=== PATIENT | male | born 1960 | race African-American/Black ===

== ENCOUNTER 2020-10-10 15:20 | Emergency (ER) | payer MEDICAID, OTHER ==
[~2020-10-10] VITALS: Ht 185.4 cm; Wt 122.5 kg
[2020-10-10 15:20] VITALS: BP 152/76
[~2020-10-10 15:20] MED LIST: ASPI-1169 PO; ATOR80TA PO; FLUO20TA28 PO; GABA-534 PO; LISI-607 PO; METO-358 PO; PANT40TA2 PO
[2020-10-10] MEDS ORDERED: KETOROLAC TROMETHAMINE INJ 30 MG/ML VIAL IV ONE (17:30)
[2020-10-10] MEDS ORDERED: IV NS 0.9% 500 ML BAG IV ONE (17:30)
[2020-10-10] MEDS ORDERED: LIDOCAINE 1% INJ 50 ML MDV IJ ONE (17:42)
[2020-10-10 17:50] LABS: BASOPHILS % (AUTO) 0.8 % (0.0-2.0); EOSINOPHILS % (AUTO) 7.2 % (0.0-6.0); HEMATOCRIT 44 % (39-51); HEMOGLOBIN 14.7 g/dL (13.5-17.5); LYMPHOCYTES # (AUTO) 1.5 /CMM (0.8-4.8); MEAN CORPUSCULAR HGB CONC 33 g/dl (31.0-36.0); MEAN CORPUSCULAR VOLUME 98 fL (80-96); MONOCYTES # (AUTO) 0.5 /CMM (0.1-1.30); MONOCYTES % (AUTO) 10.7 % (2.0-12.0); NEUTROPHILS # (AUTO) 2.5 /CMM (1.8-8.9); NEUTROPHILS % (AUTO) 51.3 % (43.0-81.0); PLATELET COUNT (AUTO) 199 /CMM (150-450); RED BLOOD CELL COUNT(AUTO) 4.54 MIL/uL (4.5-6.0); WHITE BLOOD COUNT (AUTO) 4.9 K/uL (4.3-11.0)
[2020-10-10] MEDS ORDERED: LIDOCAINE 1%-EPI 1:100,000 20 ML VIAL ONE (17:59)
[2020-10-10] MEDS ORDERED: LIDOCAINE 1%-EPI 1:100,000 20 ML VIAL TP ONE (18:00)
[2020-10-10] MEDS ORDERED: KETOROLAC TROMETHAMINE 15 MG/ML VIAL ONE (18:06)
[2020-10-10 18:08] LABS: ALBUMIN 3.4 g/dL (3.4-5.0); BILIRUBIN,DIRECT 0.1 mg/dL (0.0-0.2); BILIRUBIN,TOTAL 0.5 mg/dL (0.2-1.0); CALCIUM, SERUM 9.5 mg/dL (8.5-10.1); CREATININE 0.9 mg/dL (0.6-1.3); POTASSIUM 3.7 mmol/L (3.5-5.1); TOTAL PROTEIN, SERUM 7.3 g/dL (6.4-8.2)
[2020-10-10] MEDS ORDERED: SULFAMETH/TRIMETH 800/160 MG 1 UDTAB TABLET PO ONE (18:30)
[2020-10-10] MEDS ORDERED: CEFTRIAXONE 1GM BAG (ER ONLY) 1 GM/50 ML PIGGYBACK IV ONE (18:30)
[2020-10-10] MEDS ORDERED: SULFAMETH/TRIMETH 800/160 MG 1 UDTAB TABLET ONE (18:43)
[2020-10-10] MEDS ORDERED: CEFTRIAXONE 1GM BAG (ER ONLY) 50 ML IV ONE (18:43)
--- NOTE | 2020-10-10 19:59 | NUR ---
Patient discharged to home in stable condition. Written and verbal after care instructions given. Patient verbalizes understanding of instruction.IV removed. Catheter intact and site benign. Pressure and 4x4 applied to site. No bleeding noted.
== END 2020-10-10 19:59 | disposition home or self-care (01) ==
LOC: ER 15:21
DX: K65.1 Peritoneal abscess (principal); L72.3 Sebaceous cyst; L08.9 Local infection of the skin and subcutaneous tissue, unspecified; R00.0 Tachycardia, unspecified; E66.9 Obesity, unspecified; J44.9 Chronic obstructive pulmonary disease, unspecified; E78.5 Hyperlipidemia, unspecified; I10 Essential (primary) hypertension; Z68.30 Body mass index [BMI] 30.0-30.9, adult; Z72.0 Tobacco use; Z95.5 Presence of coronary angioplasty implant and graft; Z88.0 Allergy status to penicillin; Z88.5 Allergy status to narcotic agent; Z60.2 Problems related to living alone; Z79.82 Long term (current) use of aspirin; Z79.899 Other long term (current) drug therapy
CPT/HCPCS: 10060; 36415; 71045; 80048; 80076; 85025; 96374; 96375; 99284; A6407; J0696; J1885; J3490; J7040

== ENCOUNTER 2020-10-15 03:32 | Emergency (ER) | payer MEDICAID ==
[~2020-10-15] VITALS: Ht 185.4 cm; Wt 122.5 kg
[2020-10-15 03:35] VITALS: BP 148/69
== END 2020-10-15 04:45 | disposition home or self-care (01) ==
LOC: ER 03:35
DX: Z48.01 Encounter for change or removal of surgical wound dressing (principal); I10 Essential (primary) hypertension; J44.9 Chronic obstructive pulmonary disease, unspecified; F17.200 Nicotine dependence, unspecified, uncomplicated; Z98.890 Other specified postprocedural states; Z88.0 Allergy status to penicillin; Z88.5 Allergy status to narcotic agent; Z60.2 Problems related to living alone; Z79.899 Other long term (current) drug therapy; Z79.82 Long term (current) use of aspirin

== ENCOUNTER 2020-11-15 03:02 | Emergency (ER) | payer MEDICAID ==
[~2020-11-15] VITALS: Ht 185.4 cm; Wt 122.5 kg
[2020-11-15] MEDS ORDERED: ASPIRIN 81 MG TAB.CHEW ONE (03:23)
[2020-11-15] MEDS ORDERED: NITROGLYCERIN 0.4 MG/TAB BOTTLE SL ONE (03:30)
[2020-11-15] MEDS ORDERED: ASPIRIN 81 MG TAB.CHEW PO ONE (03:30)
--- NOTE | 2020-11-15 03:33 | NUR ---
PT DENIES CP AT THIS TIME. WILL HOLD NITRO.
[2020-11-15 03:54] LABS: BASOPHILS # (AUTO) 0.1 /CMM (0.0-0.2); BASOPHILS % (AUTO) 1.2 % (0.0-2.0); EOSINOPHILS % (AUTO) 7.5 % (0.0-6.0); HEMATOCRIT 47 % (39-51); HEMOGLOBIN 15.7 g/dL (13.5-17.5); LYMPHOCYTES # (AUTO) 1.8 /CMM (0.8-4.8); LYMPHOCYTES % (AUTO) 36.3 % (20.0-44.0); MEAN CORPUSCULAR HGB CONC 33 g/dl (31.0-36.0); MEAN CORPUSCULAR VOLUME 99 fL (80-96); MONOCYTES # (AUTO) 0.5 /CMM (0.1-1.30); MONOCYTES % (AUTO) 10.7 % (2.0-12.0); NEUTROPHILS # (AUTO) 2.2 /CMM (1.8-8.9); NEUTROPHILS % (AUTO) 44.3 % (43.0-81.0); PLATELET COUNT (AUTO) 183 /CMM (150-450); RED BLOOD CELL COUNT(AUTO) 4.78 MIL/uL (4.5-6.0)
[2020-11-15 04:00] LABS: CALCIUM, SERUM 9.3 mg/dL (8.5-10.1); POTASSIUM 3.6 mmol/L (3.5-5.1)
--- NOTE | 2020-11-15 05:34 | NUR ---
SPOKE TO YAZMIN, PT'S FRIEND. [phone] CALL BEFORE DISCHARGE/ADMISSION
--- NOTE | 2020-11-15 07:00 | NUR ---
IV removed. Catheter intact and site benign. Pressure and 4x4 applied to site. No bleeding noted.
[2020-11-15 07:01] VITALS: BP 139/83
--- NOTE | 2020-11-15 07:01 | NUR ---
Patient discharged to home in stable condition. Written and verbal after care instructions given. Patient verbalizes understanding of instruction. Pt's friend Natalee picked up pt. Denies cp. vss.
== END 2020-11-15 07:12 | disposition home or self-care (01) ==
LOC: ER 03:03
DX: R07.2 Precordial pain (principal); I10 Essential (primary) hypertension; J44.9 Chronic obstructive pulmonary disease, unspecified; Z95.5 Presence of coronary angioplasty implant and graft; Z79.82 Long term (current) use of aspirin; Z79.899 Other long term (current) drug therapy; Z88.5 Allergy status to narcotic agent; Z88.0 Allergy status to penicillin; Z20.822 Contact with and (suspected) exposure to COVID-19
CPT/HCPCS: 36415; 71045; 80048; 84484 ×2; 85025; 87426; 93005; 99285; C9803

== ENCOUNTER 2021-06-22 19:07 | Inpatient (IN) | payer MEDICAID ==
[~2021-06-22] VITALS: Ht 185.4 cm; Wt 127.5 kg
[~2021-06-22 19:07] MED LIST changes: -LISI-607 PO; +LISI-768 PO
--- NOTE | 2021-06-22 19:15 | NUR ---
recieved report from KATHRINE flores
[2021-06-22] MEDS ORDERED: FLUORESCEIN SODIUM OPHTH 1 EA STRIP ONE (19:55)
[2021-06-22] MEDS ORDERED: ERYTHROMYCIN BASE OPHTH 3.5 GM TUBE OP ONE (20:00)
[2021-06-22] MEDS ORDERED: FLUORESCEIN SODIUM OPHTH 1 EA STRIP OP ONE (20:00)
--- NOTE | 2021-06-22 20:34 | NUR ---
EMT @ BEDSIDE DOING EKG.
--- NOTE | 2021-06-22 20:37 | NUR ---
URINE COLLECTED AND SENT TO LAB.
--- NOTE | 2021-06-22 20:40 | NUR ---
DIRECTOR COMMUNITY HEALTH NURSING AT BEDSIDE.
[2021-06-22 21:03] LABS: BILIRUBIN,URINE Negative (NEGATIVE); COLOR,URINE YELLOW (YELLOW); LEUKOCYTE ESTERASE ,URINE Negative (NEGATIVE); NITRITE, URINE Negative (NEGATIVE); PROTEIN,URINE Negative (NEGATIVE); UGLUCOSE Negative (NEGATIVE)
[2021-06-22 21:05] LABS: BACTERIA,URINE Rare /HPF (None Seen); RBC,URINE NONE SEEN /HPF (0-2); SQUAMOUS EPITHELIAL CELL,UR Few /HPF (None Seen); WBC,URINE NONE SEEN /HPF (0-3)
--- NOTE | 2021-06-22 21:17 | NUR ---
covid swab done and sent to lab.
[2021-06-22 21:26] LABS: BASOPHILS # (AUTO) 0.1 K/uL (0.0-0.2); EOSINOPHILS % (AUTO) 8.7 % (0.0-6.0); HEMATOCRIT 42 % (39-51); HEMOGLOBIN 13.9 g/dL (13.5-17.5); LYMPHOCYTES # (AUTO) 1.8 K/uL (0.8-4.8); LYMPHOCYTES % (AUTO) 31.3 % (20.0-44.0); MEAN CORPUSCULAR HGB CONC 33 g/dl (31.0-36.0); MEAN CORPUSCULAR VOLUME 99 fL (80-96); MONOCYTES # (AUTO) 0.7 K/uL (0.1-1.30); MONOCYTES % (AUTO) 12.4 % (2.0-12.0); NEUTROPHILS # (AUTO) 2.7 K/uL (1.8-8.9); NEUTROPHILS % (AUTO) 46.6 % (43.0-81.0); PLATELET COUNT (AUTO) 188 K/uL (150-450); RED BLOOD CELL COUNT(AUTO) 4.29 MIL/uL (4.5-6.0); WHITE BLOOD COUNT (AUTO) 5.8 K/uL (4.3-11.0)
[2021-06-22 21:51] LABS: CALCIUM, SERUM 9.1 mg/dL (8.5-10.1); CARBON DIOXIDE 30 mmol/L (21-32); CHLORIDE 104 mmol/L (98-107); CREATININE 1.1 mg/dL (0.6-1.3); GLUCOSE 111 mg/dL (74-106); POTASSIUM 4.1 mmol/L (3.5-5.1); SODIUM SERUM 141 mmol/L (136-145); UREA NITROGEN, BLOOD 12 mg/dL (7-18)
[2021-06-22] MEDS ORDERED: ALBUTEROL FS 2.5 MG/3 ML VIAL.NEB NEB ONE (22:00)
[2021-06-22] MEDS ORDERED: IPRATROPIUM NEB FS 0.5 MG/2.5 ML AMPUL.NEB NEB ONE (22:00)
[2021-06-22] MEDS ORDERED: FUROSEMIDE 40 MG/4 ML VIAL IV ONE (22:00)
[2021-06-22 22:04] LABS: ALANINE AMINOTRANSFERASE 28 U/L (12-78); ALBUMIN 3.4 g/dL (3.4-5.0); ALCOHOL, BLOOD < 3 mg/dL (0-0); ALKALINE PHOSPHATASE 106 U/L (46-116); ASPARTATE AMINOTRANSFERASE 22 U/L (15-37); BILIRUBIN,DIRECT 0.2 mg/dL (0.0-0.2); BILIRUBIN,TOTAL 0.6 mg/dL (0.2-1.0); TOTAL PROTEIN, SERUM 7.6 g/dL (6.4-8.2)
[2021-06-22] MEDS ORDERED: FUROSEMIDE 40 MG/4 ML VIAL ONE (22:25)
[2021-06-22] MEDS ORDERED: ALBUTEROL FS 2.5 MG/3 ML VIAL.NEB ONE (22:34)
[2021-06-22] MEDS ORDERED: IPRATROPIUM NEB FS 0.5 MG/2.5 ML AMPUL.NEB ONE (22:34)
--- NOTE | 2021-06-22 22:39 | NUR ---
RT AT BEDSIDE.
[2021-06-22] MEDS ORDERED: ONDANSETRON HCL/PF 4 MG/2 ML VIAL IVP PRN (23:00)
[2021-06-22] MEDS ORDERED: ACETAMINOPHEN 325 MG TABLET PO PRN (23:00)
[2021-06-22] MEDS ORDERED: ZOLPIDEM TARTRATE 5 MG TABLET PO PRN (23:00)
[2021-06-22] MEDS ORDERED: MAGNESIUM HYDROXIDE 30 ML UDC PO PRN (23:00)
[2021-06-22] MEDS ORDERED: MAG HYDROX/AL HYDROX/SIMETH 30 ML UDC PO PRN (23:00)
[2021-06-22] MEDS ORDERED: Z GUARD REMEDY 2 OZ OINT TP PRN (23:00)
[2021-06-22] MEDS ORDERED: IPRATROPIUM NEB FS 0.5 MG/2.5 ML AMPUL.NEB NEB PRN (23:30)
[2021-06-22] MEDS ORDERED: ALBUTEROL FS 2.5 MG/3 ML VIAL.NEB NEB PRN (23:30)
--- NOTE | 2021-06-23 00:15 | NUR ---
AIR EXPORT COORDINATORINSTRUMENT MAINTENANCE SUPERVISOR PATIENT CAME IN AT THIS TIME VIA [employer]. ALERT AND ORIENTED BUT GROGGY. WHEN INTERVIEWED PATIENT DENIED SMOKING AND ONLY DRINKS OCCASIONALLY. NO S/S OF APPARENT DISTRESS IN 2LPM OXYGEN VIA NC >94% O2 SATURATION. PATIENT NO C/O PAIN. V/S FOLLOWS: BP- 134/74, P- 80, RR- 20, T- 97.9, WT- 281.1 LBS. YARD COORDINATOR READING SR. NO FLUIDS RUNNING AT THIS TIME -- PATIENT NOTED TO HAVE R. FA #20g. ID BAND ON, WILL CONTINUE TO MONITOR.
--- NOTE | 2021-06-23 00:20 | NUR ---
PT TRANSFERED PER [facility]
[2021-06-23 02:23] VITALS: BP 143/74
--- NOTE | 2021-06-23 02:34 | NUR ---
ACCOUNTING MACHINE OPERATORTOY ASSEMBLER WOOD PATIENT CAME IN AT THIS TIME VIA [employer]. ALERT AND ORIENTED BUT GROGGY. PATIENT EYES NOTED TO BE IRRITATED AND PATIENT'S SQUINTING.-- REPORTED TO ME THAT IT HURTS WHEN HE OPENS IT. WHEN INTERVIEWED PATIENT DENIED SMOKING AND ONLY DRINKS OCCASIONALLY. NO S/S OF APPARENT DISTRESS IN 2LPM OXYGEN VIA NC >94% O2 SATURATION. PATIENT NO C/O PAIN. V/S FOLLOWS: BP- 134/74, P- 80, RR- 20, T- 97.9, WT- 281.1 LBS. LEAD PROJECT MANAGER READING SR. NO FLUIDS RUNNING AT THIS TIME -- PATIENT NOTED TO HAVE R. FA #20g. ID BAND ON, WILL CONTINUE TO MONITOR
[2021-06-23 03:57] LABS: BASOPHILS # (AUTO) 0.1 K/uL (0.0-0.2); BASOPHILS % (AUTO) 1.2 % (0.0-2.0); EOSINOPHILS % (AUTO) 8.9 % (0.0-6.0); HEMATOCRIT 44 % (39-51); HEMOGLOBIN 14.5 g/dL (13.5-17.5); LYMPHOCYTES # (AUTO) 1.7 K/uL (0.8-4.8); LYMPHOCYTES % (AUTO) 29.7 % (20.0-44.0); MEAN CORPUSCULAR HGB CONC 33 g/dl (31.0-36.0); MEAN CORPUSCULAR VOLUME 98 fL (80-96); MONOCYTES # (AUTO) 0.7 K/uL (0.1-1.30); MONOCYTES % (AUTO) 13.2 % (2.0-12.0); NEUTROPHILS # (AUTO) 2.6 K/uL (1.8-8.9); PLATELET COUNT (AUTO) 196 K/uL (150-450); RED BLOOD CELL COUNT(AUTO) 4.45 MIL/uL (4.5-6.0); WHITE BLOOD COUNT (AUTO) 5.6 K/uL (4.3-11.0)
[2021-06-23 04:15] LABS: CALCIUM, SERUM 8.9 mg/dL (8.5-10.1); CREATININE 1.1 mg/dL (0.6-1.3); MAGNESIUM 2.1 mg/dL (1.8-2.4); PHOSPHORUS 4.7 mg/dL (2.5-4.9)
[2021-06-23 04:29] LABS: THYROID STIMULATING HORMONE 0.602 uIU/mL (0.358-3.74)
--- NOTE | 2021-06-23 06:50 | NUR ---
telephone lines repairer notes patient in bed with eyes closed, easy to arouse. a/ox4. no s/s of apparent distress tolerating 2lpm oxygen via nc. no c/o pain. patient ambulating with steady gait. no fluids running at this time. will endorse care morning shift rn.
[2021-06-23] MEDS ORDERED: BACL10TA PO (07:51)
[2021-06-23] MEDS ORDERED: OMEP20TA5 PO (07:51)
[2021-06-23] MEDS ORDERED: ISOS20TA8 PO (07:51)
[2021-06-23] MEDS ORDERED: GABA800T11 PO (07:51)
[2021-06-23] MEDS ORDERED: METO50TA16 PO (07:51)
[2021-06-23 08:00] VITALS: BP 123/79
[2021-06-23] MEDS ORDERED: TIOT4MIS2 INH (08:17)
[2021-06-23] MEDS ORDERED: FLUT100B3 INH (08:17)
[2021-06-23] MEDS ORDERED: ALBU6.7H9 INH (08:17)
[2021-06-23] MEDS ORDERED: ESCI20TA PO (08:17)
--- NOTE | 2021-06-23 08:20 | NUR ---
INSPECTOR SET UP AND LAY OUT OPENING NOTES RECEIVED PATIENT IN BED, ASLEEP. PATIENT ON ROOM AIR; BREATHING EVEN AND UNLABORED, NO SOB PRESENT. NO S/S OF PAIN SUCH FACIAL GRIMACING, MOANING OR GUARDING PRESENT. IV ACCESS ON RFA G #18 PRESENT AND INTACT. SAFETY PRECAUTIONS IN PLACE; BED IN LOW POSITION AND LOCKED, RAILS UP X2, CALL LIGHT WITHIN REACH. WILL CONTINUE TO MONITOR PATIENT.
[2021-06-23] MEDS: PANTOPRAZOLE 40 MG TABLET.DR PO SCH (09:17)
[2021-06-23] MEDS: FUROSEMIDE 40 MG/4 ML VIAL IV SCH (09:17)
[2021-06-23 12:08] LABS: ABG BASE EXCESS 4.9 mmol/L; ABG OXYGEN SATURATION 90.3 % (92.0-98.5); ABG PCO2 47.1 mmHg (35.0-45.0); ABG PH 7.426 (7.350-7.450); ABG PO2 56.8 mmHg (75.0-100.0); AaDO2 87.3 mmHg; COHb 1.6 % (0.5-1.5); MetHb 0.1 % (0.0-1.5); O2Hb 88.8 % (94.0-97.0); SITE, ABG Right Radial; VENT MODE, BG NASAL CANNULA
[2021-06-23] MEDS: methylPREDNISolone SOD SUCC 125 MG/2ML VIAL IV SCH ×2 (12:27→21:11)
--- NOTE | 2021-06-23 18:47 | NUR ---
DIRECTOR EQUIPMENT CLOSING NOTES PATIENT REMAINS IN BED, ASLEEP; AWAKE AT TIMES DURING THE DAY. PATIENT ON ROOM AIR; BREATHING EVEN AND UNLABORED, NO SOB PRESENT. TELE MONITOR WITH A CURRENT READING OF ST 115. NO COMPLAINS OF PAIN. IV ACCESS ON RFA G #18 PRESENT AND INTACT. ALL NEEDS ATTENDED DURING THE DAY. SAFETY PRECAUTIONS IN PLACE; BED IN LOW POSITION AND LOCKED, RAILS UP X2, CALL LIGHT WITHIN REACH. WILL ENDORSE TO FLIGHT ENGINEER HELICOPTER NURSE.
--- NOTE | 2021-06-23 19:38 | NUR ---
LEGAL MEDIATOR OPENING NOTES: RECEIVED PATIENT SLEEP IN BED COMFORTABLY, BED IN LOW POSITION, CALL LIGHTS WITHIN REACH, NO COMPLAIN OF PAINA ND DISCOMFORT AT THIS TIME, PATIENT IS A/O X4 AMBULATORY WITH SUPERVISION, ON TELE MONITORING WITH READING OF ST 109, ON NASAL CANNULA AT 3LPM NO SHORTNESS OF BREATH WAS OBSERVED, IV LINE AT RFA #18 SL, PATIENT KEPT CLEAN AND DRY, ALL NEEDS MET WILL CONTINUE TO MONITOR
[2021-06-23 20:00] VITALS: BP 135/85
[2021-06-23] MEDS: ALBUTEROL FS 2.5 MG/3 ML VIAL.NEB NEB SCH ×2 (20:17→23:48)
[2021-06-23] MEDS: IPRATROPIUM NEB FS 0.5 MG/2.5 ML AMPUL.NEB NEB SCH ×2 (20:18→23:48)
[2021-06-24] VITALS: BP 144/94
[2021-06-24] MEDS: IPRATROPIUM NEB FS 0.5 MG/2.5 ML AMPUL.NEB NEB SCH ×3 (03:50→11:30)
[2021-06-24] MEDS: ALBUTEROL FS 2.5 MG/3 ML VIAL.NEB NEB SCH ×3 (03:50→11:30)
[2021-06-24 04:00] VITALS: BP 132/91
[2021-06-24] MEDS: methylPREDNISolone SOD SUCC 125 MG/2ML VIAL IV SCH (05:30)
--- NOTE | 2021-06-24 06:46 | NUR ---
RN CLOSING NOTES: PATIENT SLEEP IN BED COMFORTABLY, AROUSABLE TO STIMULI, TANA IN LOW POSITION, CALL LIGHTS WITHIN REACH, NO COMPLAIN OF PAIN AND DISCOMFORT AT THIS TIME, ON O2 INHALATION AT 3LP, 02 SAT NO COMPLAIN OF PAIN, PT HAS CONSISTENTLY LOW BP DR MADE AWARE, NO CHANGES IN LOC AND SOB WAS OBSERVED, IV LINE AT RFA #18 INFUSING WELL, PATIENT KEPT CLEAN AND DRY, ALL NEEDS MET, ENDORSE TO INCOMING SHIFT. Addendum: 06/24/21 at 0733 by MAIRA MCCARTY RN CORRECTED CHARTING RN CLOSING NOTES: PATIENT SLEEP IN BED COMFORTABLY, AROUSABLE TO STIMULI, BED IN LOW POSITION, CALL LIGHTS WITHIN REACH, NO COMPLAIN OF PAIN AND DISCOMFORT AT THIS TIME, ON TELE MONITORING WITH READING OF ST, ASYMPTOMATIC ON O2 INHALATION AT 3LP, 02 SAT -, NO CHANGES IN LOC AND SOB OBSERVED, IV LINE AT RFA #18 INFUSING WELL, PATIENT KEPT CLEAN AND DRY, ALL NEEDS MET, ENDORSE TO INCOMING SHIFT
[2021-06-24 06:53] LABS: BASOPHILS % (AUTO) 0.1 % (0.0-2.0); HEMATOCRIT 47 % (39-51); HEMOGLOBIN 15.5 g/dL (13.5-17.5); LYMPHOCYTES # (AUTO) 0.8 K/uL (0.8-4.8); LYMPHOCYTES % (AUTO) 7.3 % (20.0-44.0); MEAN CORPUSCULAR HGB CONC 33 g/dl (31.0-36.0); MEAN CORPUSCULAR VOLUME 99 fL (80-96); MONOCYTES # (AUTO) 0.2 K/uL (0.1-1.30); MONOCYTES % (AUTO) 1.8 % (2.0-12.0); NEUTROPHILS % (AUTO) 90.8 % (43.0-81.0); PLATELET COUNT (AUTO) 214 K/uL (150-450); RED BLOOD CELL COUNT(AUTO) 4.76 MIL/uL (4.5-6.0)
[2021-06-24 07:05] LABS: CALCIUM, SERUM 9.1 mg/dL (8.5-10.1); POTASSIUM 4.3 mmol/L (3.5-5.1)
--- NOTE | 2021-06-24 07:27 | NUR ---
PAPER REEL OPERATOR OPENING NOTES RECEIVED PATIENT IN BED, ASLEEP. PATIENT ON ROOM AIR; BREATHING EVEN AND UNLABORED, NO SOB PRESENT. NO S/S OF PAIN SUCH FACIAL GRIMACING, MOANING OR GUARDING PRESENT. IV ACCESS ON RFA G #18 PRESENT AND INTACT. SAFETY PRECAUTIONS IN PLACE; BED IN LOW POSITION AND LOCKED, RAILS UP X2, CALL LIGHT WITHIN REACH. WILL CONTINUE TO MONITOR PATIENT.
[2021-06-24] MEDS: PANTOPRAZOLE 40 MG TABLET.DR PO SCH (07:39)
[2021-06-24 08:00] VITALS: BP 131/77
[2021-06-24] MEDS: FUROSEMIDE 40 MG/4 ML VIAL IV SCH (08:02)
--- NOTE | 2021-06-24 12:09 | NUR ---
REPAIR DEPARTMENT MANAGER NOTES PATIENT DECIDED TO GO AMA BECAUSE HE WANTS TO GO HOME AND HIS FAMILY WAS IN THE PARKING LOT WAITING FOR HIM. DISCUSSED WITH PATIENT AND THE FAMILY ALL POSSIBLE CONSEQUENCES OF LEAVING AMA BUT PATIENT SAID HE STILL WANTS TO GO. HE WAS SEEN BY PHYSICIAN TODAY BUT DID NOT SAY ANYTHING ABOUT WANTING TO GO. MD MADE AWARE ABOUT PATIENT SIGNING AMA.
== END 2021-06-24 11:50 | disposition left against medical advice (07) | DRG 140 ==
LOC: ER 19:24 → TELE 06-23 00:03
PROVIDERS: ADMIT Student in an Organized Health Care Education/Training Program; ATTEND Internal Medicine
DX: J44.1 Chronic obstructive pulmonary disease with (acute) exacerbation (principal); J96.21 Acute and chronic respiratory failure with hypoxia; E66.2 Morbid (severe) obesity with alveolar hypoventilation; I25.10 Atherosclerotic heart disease of native coronary artery without angina pectoris; E78.5 Hyperlipidemia, unspecified; H20.9 Unspecified iridocyclitis; Z79.82 Long term (current) use of aspirin; Z95.5 Presence of coronary angioplasty implant and graft; Z88.0 Allergy status to penicillin; F17.210 Nicotine dependence, cigarettes, uncomplicated; Z68.37 Body mass index [BMI] 37.0-37.9, adult; E11.9 Type 2 diabetes mellitus without complications; Z20.822 Contact with and (suspected) exposure to COVID-19; I10 Essential (primary) hypertension; J90 Pleural effusion, not elsewhere classified
CPT/HCPCS: 36415; 36600; 71045-TC; 80048-TC; 80061-TC; 80076-TC; 81001; 82803-TC; 83735-TC; 83880; 84100-TC; 84443-TC; 84484-TC; 85025-TC; 87081-TC; 93307-TC; 94799-TC; 97116-TC; 97530-TC; C9803; G0378; G0480; J1940; J2930

== ENCOUNTER 2022-02-18 07:57 | Emergency (ER) | payer MEDICAID ==
[~2022-02-18] VITALS: Ht 185.4 cm; Wt 125.2 kg
[~2022-02-18 07:57] MED LIST changes: +ALBU6.7H9 INH; +BACL10TA PO; +ESCI20TA PO; -FLUO20TA28 PO; +FLUT100B3 INH; -GABA-534 PO; +GABA800T11 PO; +ISOS20TA8 PO; -METO-358 PO; +METO50TA16 PO; +OMEP20TA5 PO; -PANT40TA2 PO; +TIOT4MIS2 INH
[2022-02-18 08:05] VITALS: BP 138/87
--- NOTE | 2022-02-18 08:08 | NUR ---
SEEN AND EXAMINED BY ./
[2022-02-18] MEDS ORDERED: LIDOCAINE 1%-EPI 1:100,000 20 ML VIAL ONE (08:21)
--- NOTE | 2022-02-18 08:38 | NUR ---
I AND D DONE BY .
[2022-02-18] MEDS ORDERED: DOXY100T2 PO (08:42)
[2022-02-18] MEDS ORDERED: DOXYCYCLINE HYCLATE (100 MG) 100 MG TABLET ONE (08:43)
--- NOTE | 2022-02-18 08:46 | NUR ---
Patient discharged to home in stable condition. Written and verbal after care instructions given. Patient verbalizes understanding of instruction.
--- NOTE | 2022-02-18 08:46 | NUR ---
WOUND DRESSING DONE.
[2022-02-18] MEDS ORDERED: DOXYCYCLINE HYCLATE (100 MG) 100 MG TABLET PO ONE (09:00)
== END 2022-02-18 08:47 | disposition home or self-care (01) ==
LOC: ER 07:57
DX: L02.411 Cutaneous abscess of right axilla (principal); I10 Essential (primary) hypertension; I25.2 Old myocardial infarction; J44.9 Chronic obstructive pulmonary disease, unspecified; F17.200 Nicotine dependence, unspecified, uncomplicated; Z88.0 Allergy status to penicillin; Z88.5 Allergy status to narcotic agent; Z79.51 Long term (current) use of inhaled steroids; Z79.82 Long term (current) use of aspirin; Z79.899 Other long term (current) drug therapy
CPT/HCPCS: 10060; 99283; A6403; A6407; J3490

== ENCOUNTER 2022-04-07 02:47 | Emergency (ER) | payer MEDICAID ==
[~2022-04-07] VITALS: Ht 185.4 cm; Wt 75.7 kg
[~2022-04-07 02:47] MED LIST changes: +DOXY100T2 PO
[2022-04-07 03:28] VITALS: BP 114/65
[2022-04-07] MEDS ORDERED: KETOROLAC TROMETHAMINE INJ 30 MG/ML VIAL ONE (03:46)
[2022-04-07] MEDS ORDERED: KETOROLAC TROMETHAMINE INJ 30 MG/ML VIAL IM ONE (04:00)
[2022-04-07] MEDS ORDERED: NAPR500T6 PO (05:14)
--- NOTE | 2022-04-07 05:20 | NUR ---
Patient discharged to home in stable condition. Written and verbal after care instructions given. Patient verbalizes understanding of instruction. Pt ambulatory with a steady gait
== END 2022-04-07 05:20 | disposition home or self-care (01) ==
LOC: ER 02:56
DX: M79.642 Pain in left hand (principal); I10 Essential (primary) hypertension; I25.2 Old myocardial infarction; J44.9 Chronic obstructive pulmonary disease, unspecified; F17.200 Nicotine dependence, unspecified, uncomplicated; Z88.0 Allergy status to penicillin; Z88.5 Allergy status to narcotic agent; Z60.2 Problems related to living alone; Z79.899 Other long term (current) drug therapy
CPT/HCPCS: 73130; 96372; 99283; J1885

== ENCOUNTER 2022-09-17 04:49 | Emergency (ER) | payer MEDICAID ==
[~2022-09-17] VITALS: Ht 182.9 cm; Wt 85.3 kg
[~2022-09-17 04:49] MED LIST changes: +NAPR500T6 PO
[2022-09-17 04:54] VITALS: BP 141/88
[2022-09-17] MEDS ORDERED: CYCLOBENZAPRINE 10 MG TABLET PO ONE (05:00)
[2022-09-17] MEDS ORDERED: KETOROLAC TROMETHAMINE INJ 30 MG/ML VIAL IM ONE (05:00)
[2022-09-17] MEDS ORDERED: KETO10TA2 PO (05:02)
[2022-09-17] MEDS ORDERED: CYCL5TAB PO (05:02)
[2022-09-17] MEDS ORDERED: KETOROLAC TROMETHAMINE INJ 30 MG/ML VIAL ONE (05:07)
[2022-09-17] MEDS ORDERED: CYCLOBENZAPRINE 10 MG TABLET ONE (05:14)
== END 2022-09-17 05:25 | disposition home or self-care (01) ==
LOC: ER 04:51
DX: M54.50 Low back pain, unspecified (principal); I10 Essential (primary) hypertension; J44.9 Chronic obstructive pulmonary disease, unspecified; I25.2 Old myocardial infarction; F17.200 Nicotine dependence, unspecified, uncomplicated; Z88.0 Allergy status to penicillin; Z88.5 Allergy status to narcotic agent; Z60.2 Problems related to living alone; Z79.899 Other long term (current) drug therapy; Z79.82 Long term (current) use of aspirin
CPT/HCPCS: 99283; 96372; J1885

== ENCOUNTER 2024-02-24 00:39 | Emergency (ER) | payer MEDICAID ==
[~2024-02-24] VITALS: Ht 185.4 cm; Wt 122.5 kg
[~2024-02-24 00:39] MED LIST changes: +CYCL5TAB PO; +KETO10TA2 PO
[2024-02-24 01:27] VITALS: BP 145/83; TEMP 98.2; O2SAT 94
[2024-02-24] MEDS ORDERED: KETO10TA2 PO (02:14)
[2024-02-24] MEDS ORDERED: oxyCODONE/APAP (5/325 MG) 1 UDTAB TABLET ONE (02:23)
[2024-02-24] MEDS ORDERED: KETOROLAC TROMETHAMINE INJ 30 MG/ML VIAL ONE (02:23)
[2024-02-24] MEDS: KETOROLAC TROMETHAMINE INJ 30 MG/ML VIAL IM ONE (02:28)
[2024-02-24] MEDS: oxyCODONE/APAP (5/325 MG) 1 UDTAB TABLET PO ONE (02:28)
== END 2024-02-24 02:48 | disposition home or self-care (01) ==
LOC: ER 00:48
DX: G89.29 Other chronic pain (principal); M54.50 Low back pain, unspecified; I10 Essential (primary) hypertension; J44.9 Chronic obstructive pulmonary disease, unspecified; F17.200 Nicotine dependence, unspecified, uncomplicated; Z79.899 Other long term (current) drug therapy; Z79.82 Long term (current) use of aspirin; Z60.2 Problems related to living alone; Z88.0 Allergy status to penicillin; Z88.1 Allergy status to other antibiotic agents
CPT/HCPCS: 99283; 96372; 73521; J1885

== ENCOUNTER 2024-09-02 22:16 | Emergency (ER) | payer MEDICAID, OTHER | END 2024-09-03 00:19 | disposition left against medical advice (07) | LOC: ER 22:22 | DX: M54.9 Dorsalgia, unspecified (principal); Z53.21 Procedure and treatment not carried out due to patient leaving prior to being seen by health care provider ==

== ENCOUNTER 2024-09-09 02:29 | Emergency (ER) | payer MEDICARE, OTHER ==
[~2024-09-09] VITALS: Ht 185.4 cm; Wt 122.5 kg
[2024-09-09] MEDS ORDERED: CYCLOBENZAPRINE 10 MG TABLET ONE (03:26)
[2024-09-09] MEDS ORDERED: KETOROLAC TROMETHAMINE INJ 30 MG/ML VIAL ONE (03:26)
[2024-09-09] MEDS ORDERED: CYCL5TAB PO (03:35)
[2024-09-09] MEDS: CYCLOBENZAPRINE 10 MG TABLET PO ONE (03:40)
[2024-09-09] MEDS: KETOROLAC TROMETHAMINE INJ 60 MG/2 ML VIAL IM ONE (03:40)
[2024-09-09 03:57] VITALS: BP 133/81; TEMP 98.3; O2SAT 94
== END 2024-09-09 03:57 | disposition home or self-care (01) ==
LOC: ER 02:32
DX: G89.29 Other chronic pain (principal); M54.40 Lumbago with sciatica, unspecified side; F17.200 Nicotine dependence, unspecified, uncomplicated; G47.30 Sleep apnea, unspecified; I10 Essential (primary) hypertension; J44.9 Chronic obstructive pulmonary disease, unspecified; Z79.899 Other long term (current) drug therapy; Z88.0 Allergy status to penicillin; Z88.5 Allergy status to narcotic agent; Z60.2 Problems related to living alone
CPT/HCPCS: 99283; 96372; J1885